=== PATIENT | male | born 1965 | race Caucasian/White ===

== ENCOUNTER 2023-05-15 18:05 | Inpatient (IN) | payer OTHER ==
[~2023-05-15] VITALS: Ht 175.3 cm; Wt 110.7 kg
[2023-05-15 18:11] VITALS: BP 132/86; PULSE 77; RESP 19; TEMP 97.7; O2SAT 98
[2023-05-15] MEDS ORDERED: NACL 0.9% 1,000 ML IV ONE ×2 (18:35→19:30)
[2023-05-15 19:12] LABS: ACETONE, SERUM Small (NEGATIVE)
[2023-05-15 19:21] LABS: CALCIUM 8.5 mg/dL (8.5-10.1); CARBON DIOXIDE 16.9 mmol/L (21-32); CREATININE 1.1 mg/dL (0.6-1.3); POTASSIUM 3.9 mmol/L (3.5-5.1)
[2023-05-15 19:25] LABS: ALANINE AMINOTRANSFERASE 37 U/L (12-78); ALBUMIN 3.5 g/dL (3.4-5.0); ALKALINE PHOSPHATASE 182 U/L (50-136); ASPARTATE AMINOTRANSFERASE 26 U/L (15-37); BILIRUBIN,DIRECT 0.1 mg/dL (0.0-0.3); TOTAL BILIRUBIN 0.4 mg/dL (0.0-1.0); TOTAL PROTEIN, SERUM 7.4 g/dL (6.4-8.2)
[2023-05-15 19:39] LABS: APPEARANCE,URINE SLIGHTLY CLOUDY (CLEAR); COLOR,URINE YELLOW (YELLOW); PROTEIN,URINE NEGATIVE (NEGATIVE)
[2023-05-15 19:40] LABS: BLOOD, URINE 1+ (NEGATIVE); UGLUCOSE 3+ (NEGATIVE)
[2023-05-15] MEDS ORDERED: KCL 20 MEQ IN 100 mL PREMIX 100 ML IV ONE (19:40)
[2023-05-15] MEDS ORDERED: INSULIN REGULAR, HUMAN 100 UNIT in NACL 0.9% 100 ML IV ONE ×2 (19:40)
[2023-05-15 19:41] LABS: BILIRUBIN,URINE NEGATIVE (NEGATIVE); LEUKOCYTE ESTERASE ,URINE NEGATIVE (NEGATIVE); NITRITE, URINE NEGATIVE (NEGATIVE); UROBILINOGEN,URINE 0.2 EU/dL (0.2 - 1)
[2023-05-15] MEDS ORDERED: DEXTROSE 50% 50 ML SYR IVP PRN ×2 (20:00→20:10)
[2023-05-15 20:01] LABS: BASOPHILS % (AUTO) 0.6 % (0.0-2.0); EOSINOPHILS # (AUTO) 0.1 K/uL (0-0.4); EOSINOPHILS % (AUTO) 1.4 % (0.0-4.0); HEMATOCRIT 43.1 % (36-52); HEMOGLOBIN 14.8 g/dL (12.0-18.0); LYMPHOCYTES # (AUTO) 1.4 K/uL (2.0-11.5); LYMPHOCYTES % (AUTO) 21.7 % (20.5-51.1); MEAN CORPUSCULAR HEMOGLOBIN 29 pg (27-31); MEAN CORPUSCULAR HGB CONC 34 g/dL (33-37); MEAN CORPUSCULAR VOLUME 84.6 fL (80-94); MONOCYTES # (AUTO) 0.3 K/uL (0.8-1.0); MONOCYTES % (AUTO) 5.4 % (1.7-9.3); NEUTROPHILS # (AUTO) 4.5 K/uL (1.8-7.7); NEUTROPHILS % (AUTO) 70.9 % (42.2-75.2); PLATELET COUNT (AUTO) 179 K/uL (140-450); RED CELL DISTRIBUTION WIDTH 13.2 % (11.6-13.7); WHITE BLOOD COUNT (AUTO) 6.3 K/uL (4.8-10.8)
[2023-05-15] MEDS ORDERED: POTASSIUM CHL 20 MEQ/NACL 0.9% 1,000 ML IV PRN (20:10)
[2023-05-15] MEDS: BLOOD GLUCOSE MONITORING 1 DEV DEV FS SCH ×7 (20:36→23:11)
[2023-05-15 20:52] LABS: MAGNESIUM 1.7 mg/dL (1.8-2.4); PHOSPHORUS 2.8 mg/dL (2.5-4.9)
[2023-05-15 21:52] LABS: FLU A ANTIGEN negative (NEGATIVE); FLU B ANTIGEN NEGATIVE (NEGATIVE)
[2023-05-16] MEDS ORDERED: NACL 0.9% 1,000 ML IV SCH ×2 (00:05→10:45)
[2023-05-16] MEDS: BLOOD GLUCOSE MONITORING 1 DEV DEV FS SCH ×13 (00:11→21:35)
[2023-05-16 00:23] LABS: ANION GAP 19.2 (8-16); CARBON DIOXIDE 16.4 mmol/L (21-32); POTASSIUM 3.6 mmol/L (3.5-5.1)
[2023-05-16 00:24] LABS: CALCIUM 7.8 mg/dL (8.5-10.1)
[2023-05-16 00:31] LABS: MAGNESIUM 1.8 mg/dL (1.8-2.4); PHOSPHORUS 2.8 mg/dL (2.5-4.9)
[2023-05-16 00:34] LABS: ANION GAP 15.3 (8-16); CALCIUM 8.5 mg/dL (8.5-10.1); CREATININE 0.9 mg/dL (0.6-1.3); POTASSIUM 3.3 mmol/L (3.5-5.1)
[2023-05-16] MEDS ORDERED: POTASSIUM CHLORIDE 10 MEQ TABER PO SCH (03:35)
[2023-05-16] MEDS: DEXT 5% / NACL 0.45% 1,000 ML IV SCH ×2 (03:43→09:18)
[2023-05-16 04:16] LABS: BASOPHILS # (AUTO) 0.1 K/uL (0.00-0.22); BASOPHILS % (AUTO) 0.8 % (0.0-2.0); EOSINOPHILS # (AUTO) 0.1 K/uL (0-0.4); EOSINOPHILS % (AUTO) 1.9 % (0.0-4.0); HEMATOCRIT 41.5 % (36-52); HEMOGLOBIN 14.5 g/dL (12.0-18.0); LYMPHOCYTES % (AUTO) 31.2 % (20.5-51.1); MEAN CORPUSCULAR HEMOGLOBIN 29 pg (27-31); MEAN CORPUSCULAR HGB CONC 35 g/dL (33-37); MEAN CORPUSCULAR VOLUME 83.8 fL (80-94); MONOCYTES # (AUTO) 0.5 K/uL (0.8-1.0); NEUTROPHILS # (AUTO) 3.8 K/uL (1.8-7.7); NEUTROPHILS % (AUTO) 58.1 % (42.2-75.2); PLATELET COUNT (AUTO) 181 K/uL (140-450); RED BLOOD CELL COUNT(AUTO) 4.96 MIL/uL (4.20-6.10); RED CELL DISTRIBUTION WIDTH 13.2 % (11.6-13.7); WHITE BLOOD COUNT (AUTO) 6.5 K/uL (4.8-10.8)
[2023-05-16 05:16] LABS: ANION GAP 16.3 (8-16); CALCIUM 8.5 mg/dL (8.5-10.1); CARBON DIOXIDE 20.1 mmol/L (21-32); POTASSIUM 3.4 mmol/L (3.5-5.1)
[2023-05-16 05:17] LABS: ALBUMIN 3.2 g/dL (3.4-5.0); CREATININE 0.8 mg/dL (0.6-1.3); TOTAL BILIRUBIN 0.4 mg/dL (0.0-1.0); TOTAL PROTEIN, SERUM 7.3 g/dL (6.4-8.2)
[2023-05-16 05:18] LABS: PHOSPHORUS 2.7 mg/dL (2.5-4.9)
[2023-05-16 08:28] LABS: ANION GAP 11.8 (8-16); CALCIUM 8.4 mg/dL (8.5-10.1); CARBON DIOXIDE 23.6 mmol/L (21-32); CREATININE 0.7 mg/dL (0.6-1.3); POTASSIUM 3.4 mmol/L (3.5-5.1)
[2023-05-16 08:32] LABS: MAGNESIUM 1.9 mg/dL (1.8-2.4); PHOSPHORUS 2.6 mg/dL (2.5-4.9)
[2023-05-16] MEDS ORDERED: DEXTROSE 50% 50 ML SYR IVP PRN (09:15)
[2023-05-16] MEDS: INSULIN LANTUS 100 UNITS/ML 10 ML VIAL SUBQ SCH (09:32)
[2023-05-16 11:10] VITALS: BP 141/81; PULSE 58; PULSE 61; RESP 18; TEMP 96.1; O2SAT 98
[2023-05-16] MEDS: INSULIN LISPRO SLIDING SCALE 100 UNITS/ML VIAL SUBQ PRN ×3 (11:21→22:42)
[2023-05-16 12:00] VITALS: PULSE 58
[2023-05-16 12:45] LABS: ANION GAP 16.7 (8-16); CALCIUM 8.1 mg/dL (8.5-10.1); CARBON DIOXIDE 19.6 mmol/L (21-32); CREATININE 0.7 mg/dL (0.6-1.3); POTASSIUM 3.3 mmol/L (3.5-5.1)
[2023-05-16 16:00] VITALS: BP 132/84; PULSE 53; PULSE 57; RESP 18; TEMP 97.5; O2SAT 97
[2023-05-16 17:24] LABS: CALCIUM 8.2 mg/dL (8.5-10.1); CARBON DIOXIDE 24.3 mmol/L (21-32); CREATININE 0.7 mg/dL (0.6-1.3); POTASSIUM 3.3 mmol/L (3.5-5.1)
[2023-05-16 18:53] VITALS: O2SAT 97
[2023-05-16 20:00] VITALS: BP 91/48; PULSE 56; PULSE 61; RESP 18; TEMP 98.2; O2SAT 97
[2023-05-16 20:41] LABS: ANION GAP 12.4 (8-16); CALCIUM 8.1 mg/dL (8.5-10.1); CARBON DIOXIDE 23.8 mmol/L (21-32); CREATININE 0.6 mg/dL (0.6-1.3); POTASSIUM 3.2 mmol/L (3.5-5.1)
[2023-05-17] VITALS: PULSE 54
[2023-05-17 01:07] LABS: CALCIUM 8.3 mg/dL (8.5-10.1); CARBON DIOXIDE 24.1 mmol/L (21-32); CREATININE 0.7 mg/dL (0.6-1.3); POTASSIUM 3.1 mmol/L (3.5-5.1)
[2023-05-17 04:14] LABS: BASOPHILS % (AUTO) 0.8 % (0.0-2.0); EOSINOPHILS # (AUTO) 0.2 K/uL (0-0.4); EOSINOPHILS % (AUTO) 2.6 % (0.0-4.0); HEMATOCRIT 38.9 % (36-52); HEMOGLOBIN 13.7 g/dL (12.0-18.0); LYMPHOCYTES # (AUTO) 2.1 K/uL (2.0-11.5); LYMPHOCYTES % (AUTO) 35.9 % (20.5-51.1); MEAN CORPUSCULAR HEMOGLOBIN 29 pg (27-31); MEAN CORPUSCULAR HGB CONC 35 g/dL (33-37); MEAN CORPUSCULAR VOLUME 83.2 fL (80-94); MONOCYTES # (AUTO) 0.4 K/uL (0.8-1.0); MONOCYTES % (AUTO) 6.2 % (1.7-9.3); NEUTROPHILS # (AUTO) 3.2 K/uL (1.8-7.7); NEUTROPHILS % (AUTO) 54.5 % (42.2-75.2); PLATELET COUNT (AUTO) 154 K/uL (140-450); RED BLOOD CELL COUNT(AUTO) 4.68 MIL/uL (4.20-6.10); RED CELL DISTRIBUTION WIDTH 13.1 % (11.6-13.7); WHITE BLOOD COUNT (AUTO) 5.9 K/uL (4.8-10.8)
[2023-05-17 04:24] LABS: ALBUMIN 2.6 g/dL (3.4-5.0); ANION GAP 12.1 (8-16); CALCIUM 8.1 mg/dL (8.5-10.1); CARBON DIOXIDE 25.9 mmol/L (21-32); CREATININE 0.6 mg/dL (0.6-1.3); MAGNESIUM 1.8 mg/dL (1.8-2.4); PHOSPHORUS 2.7 mg/dL (2.5-4.9); TOTAL BILIRUBIN 0.4 mg/dL (0.0-1.0); TOTAL PROTEIN, SERUM 6.3 g/dL (6.4-8.2)
[2023-05-17] MEDS: INSULIN LISPRO SLIDING SCALE 100 UNITS/ML VIAL SUBQ PRN ×2 (06:40→12:12)
[2023-05-17] MEDS: BLOOD GLUCOSE MONITORING 1 DEV DEV FS SCH ×2 (06:40→12:15)
[2023-05-17 08:00] VITALS: BP 125/82; PULSE 58; PULSE 59; RESP 18; TEMP 97.5; O2SAT 98
[2023-05-17] MEDS ORDERED: LOSARTAN 25 MG TAB PO SCH (09:00)
[2023-05-17] MEDS ORDERED: ATORVASTATIN 20 MG TAB PO SCH (09:00)
[2023-05-17] MEDS: INSULIN LANTUS 100 UNITS/ML 10 ML VIAL SUBQ SCH (09:27)
[2023-05-17 12:00] VITALS: BP 128/84; PULSE 63; RESP 18; TEMP 97.6; O2SAT 98
[2023-05-17] MEDS ORDERED: LOSA-269 PO (14:11)
[2023-05-17] MEDS ORDERED: EMPA25TA PO (14:11)
[2023-05-17] MEDS ORDERED: ATOR20TA40 PO (14:11)
[2023-05-17] MEDS ORDERED: METF-713 PO (14:11)
[2023-05-17] MEDS ORDERED: POTASSIUM CHLORIDE 10 MEQ TABER PO SCH (14:12)
[2023-05-17] MEDS ORDERED: BLOO1EAC40 MC (14:17)
[2023-05-17] MEDS ORDERED: BLOO-224 MC (14:17)
[2023-05-17 15:31] VITALS: BP 128/84; PULSE 63; RESP 18; TEMP 97.6
== END 2023-05-17 17:00 | disposition home or self-care (01) | DRG 639 ==
LOC: MED 18:05 → MMU 19:59 → MTU 05-16 10:43
PROVIDERS: ADMIT Family Medicine; ATTEND Family Medicine
DX: E11.10 Type 2 diabetes mellitus with ketoacidosis without coma (principal); Z20.822 Contact with and (suspected) exposure to COVID-19; Z79.4 Long term (current) use of insulin
CPT/HCPCS: 36415; 80048; 80053; 80076; 81003; 82009; 82803; 82948; 83036; 83735; 84100; 85025; 87040; 87081; 87086; 96360; 96361; 99291; J1644; J1815; J3480; J7030

== ENCOUNTER 2023-08-19 20:37 | Inpatient (IN) | payer OTHER ==
[~2023-08-19] VITALS: Ht 175.3 cm; Wt 89.4 kg
[~2023-08-19 20:37] MED LIST: ATOR20TA40 PO; BLOO-224 MC; BLOO1EAC40 MC; EMPA25TA PO; LOSA-269 PO; METF-713 PO
[2023-08-19 21:14] VITALS: BP 107/69; PULSE 60; RESP 18; TEMP 98; O2SAT 99
[2023-08-19 22:05] LABS: BASOPHILS # (AUTO) 0.1 K/uL (0.00-0.22); EOSINOPHILS # (AUTO) 0.1 K/uL (0-0.4); EOSINOPHILS % (AUTO) 1.3 % (0.0-4.0); HEMATOCRIT 41.6 % (36-52); HEMOGLOBIN 13.9 g/dL (12.0-18.0); LYMPHOCYTES # (AUTO) 1.6 K/uL (2.0-11.5); MEAN CORPUSCULAR HEMOGLOBIN 29 pg (27-31); MEAN CORPUSCULAR HGB CONC 33 g/dL (33-37); MEAN CORPUSCULAR VOLUME 87.7 fL (80-94); MONOCYTES # (AUTO) 0.5 K/uL (0.8-1.0); MONOCYTES % (AUTO) 8.1 % (1.7-9.3); NEUTROPHILS # (AUTO) 3.9 K/uL (1.8-7.7); NEUTROPHILS % (AUTO) 63.6 % (42.2-75.2); PLATELET COUNT (AUTO) 188 K/uL (140-450); RED BLOOD CELL COUNT(AUTO) 4.75 MIL/uL (4.20-6.10); RED CELL DISTRIBUTION WIDTH 14.9 % (11.6-13.7); WHITE BLOOD COUNT (AUTO) 6.1 K/uL (4.8-10.8)
[2023-08-19 22:15] LABS: ANION GAP 11.7 (8-16); CALCIUM 9.5 mg/dL (8.5-10.1); CARBON DIOXIDE 29.7 mmol/L (21-32); CREATININE 0.7 mg/dL (0.6-1.3); POTASSIUM 4.4 mmol/L (3.5-5.1)
[2023-08-19 22:37] LABS: ALBUMIN 3.4 g/dL (3.4-5.0); TOTAL BILIRUBIN 16.1 mg/dL (0.0-1.0); TOTAL PROTEIN, SERUM 6.7 g/dL (6.4-8.2)
[2023-08-19 23:26] LABS: APPEARANCE,URINE CLEAR (CLEAR); BILIRUBIN,URINE 3+ (NEGATIVE); BLOOD, URINE 3+ (NEGATIVE); COLOR,URINE YELLOW (YELLOW); LEUKOCYTE ESTERASE ,URINE NEGATIVE (NEGATIVE); NITRITE, URINE NEGATIVE (NEGATIVE); PROTEIN,URINE NEGATIVE (NEGATIVE); UGLUCOSE 3+ (NEGATIVE); UROBILINOGEN,URINE 0.2 EU/dL (0.2 - 1)
[2023-08-19 23:31] LABS: ICTOTEST POSITIVE (NEGATIVE)
[2023-08-19 23:32] LABS: BACTERIA,URINE >30 (MANY) /HPF (None Seen); MUCUS,URINE 1+ /LPF (None Seen); SQUAMOUS EPITHELIAL CELL,UR 0-3 (FEW) /LPF (0-3 (FEW)); WBC,URINE 0-5 /HPF (0-5)
[2023-08-20] MEDS ORDERED: LOSA-272 PO (01:14)
[2023-08-20] MEDS: NACL 0.9% 1,000 ML IV ONE (01:14)
[2023-08-20] MEDS: diphenhydrAMINE 50 MG/ML VIAL IVP ONE (05:55)
[2023-08-20] MEDS ORDERED: ONDANSETRON 4 MG/2 ML VIAL IVP PRN (09:25)
[2023-08-20] MEDS: NACL 0.9% 1,000 ML IV SCH (10:17)
[2023-08-20 10:38] LABS: INR 0.95 (0.8-1.2); PARTIAL THROMBOPLASTIN TIME 27.2 secs (22-35.6)
[2023-08-20 10:49] LABS: FLU A ANTIGEN negative (NEGATIVE); FLU B ANTIGEN negative (NEGATIVE)
[2023-08-20 17:45] VITALS: BP 128/63; PULSE 53; RESP 18; TEMP 98; O2SAT 98
[2023-08-20] MEDS: DEXT 5% /NACL 0.9% 1,000 ML IV SCH (17:50)
[2023-08-20 19:49] VITALS: PULSE 53; RESP 18; O2SAT 98
[2023-08-20 20:00] VITALS: BP 128/63; PULSE 59; RESP 18; TEMP 97.7; O2SAT 98
[2023-08-20] MEDS: diphenhydrAMINE 50 MG/ML VIAL IVP PRN (23:23)
[2023-08-21 06:49] LABS: BASOPHILS % (AUTO) 0.4 % (0.0-2.0); EOSINOPHILS # (AUTO) 0.2 K/uL (0-0.4); EOSINOPHILS % (AUTO) 2.7 % (0.0-4.0); HEMATOCRIT 40.4 % (36-52); HEMOGLOBIN 13.6 g/dL (12.0-18.0); LYMPHOCYTES # (AUTO) 4.1 K/uL (2.0-11.5); LYMPHOCYTES % (AUTO) 71.6 % (20.5-51.1); MEAN CORPUSCULAR HEMOGLOBIN 30 pg (27-31); MEAN CORPUSCULAR HGB CONC 34 g/dL (33-37); MONOCYTES # (AUTO) 0.1 K/uL (0.8-1.0); MONOCYTES % (AUTO) 2.2 % (1.7-9.3); NEUTROPHILS # (AUTO) 1.3 K/uL (1.8-7.7); NEUTROPHILS % (AUTO) 23.1 % (42.2-75.2); PLATELET COUNT (AUTO) 175 K/uL (140-450); RED BLOOD CELL COUNT(AUTO) 4.58 MIL/uL (4.20-6.10); RED CELL DISTRIBUTION WIDTH 14.8 % (11.6-13.7); WHITE BLOOD COUNT (AUTO) 5.8 K/uL (4.8-10.8)
[2023-08-21 07:19] LABS: ALBUMIN 2.8 g/dL (3.4-5.0); CALCIUM 8.7 mg/dL (8.5-10.1); CARBON DIOXIDE 27.4 mmol/L (21-32); CREATININE 0.6 mg/dL (0.6-1.3); POTASSIUM 4.4 mmol/L (3.5-5.1); TOTAL BILIRUBIN 18.3 mg/dL (0.0-1.0); TOTAL PROTEIN, SERUM 5.8 g/dL (6.4-8.2)
[2023-08-21 08:00] VITALS: PULSE 53; RESP 18; O2SAT 98
[2023-08-21 08:26] VITALS: BP 111/70; PULSE 50; RESP 18; TEMP 98.2; O2SAT 100
[2023-08-21] MEDS ORDERED: ATORVASTATIN 20 MG TAB PO SCH (09:00)
[2023-08-21] MEDS: LOSARTAN 25 MG TAB PO SCH (09:00)
== END 2023-08-21 16:40 | disposition home or self-care (01) | DRG 446 ==
LOC: MED 20:37 → MMU 08-20 09:24 → MTU 08-20 15:23
PROVIDERS: ADMIT Student in an Organized Health Care Education/Training Program; ATTEND Student in an Organized Health Care Education/Training Program
DX: K80.51 Calculus of bile duct without cholangitis or cholecystitis with obstruction (principal); K86.9 Disease of pancreas, unspecified; I10 Essential (primary) hypertension; K74.60 Unspecified cirrhosis of liver; E11.9 Type 2 diabetes mellitus without complications; Z79.899 Other long term (current) drug therapy
CPT/HCPCS: 36415; 71045; 80048; 80053; 80076; 81001; 82948; 83690; 85025; 85610; 85730; 87081; 96361; 96374; 99285; J1200; Q0092; Q9967